=== PATIENT | male | born 1960 | race Caucasian/White ===

== ENCOUNTER 2021-02-19 13:19 | Outpatient (CLI) | payer BC, SELFPAY ==
--- NOTE | ~2021-02-19 | MR_ITS ---
EXAMINATION: MR abdomen wo con DATE: 02/19/2021 13:59 INDICATION: Other specified diseases of liver. TECHNIQUE: Magnetic resonance imaging (MRI) of the abdomen was performed without intravenous contrast . Sequences included coronal T2-weighted FS FSE, coronal and axial FS FIESTA, axial T2-weighted FSE, coronal LAVA-flex, axial STIR FSE, axial DWI, axial dual-echo T1-weighted FSPGR, and axial LAVA. COMPARISON: None. FINDINGS: There is diffuse hepatic steatosis. There are cysts in the liver measuring up to 12 mm. The gallbladd er, spleen, pancreas, and adrenal glands are normal. There are cysts in the kidneys measuring up to 6 mm in the right. There are no dilated loops of bowel. There are no pathologically enlarged lymph nod es. There is no free intraperitoneal fluid. IMPRESSION: 1. Small cysts in the liver. 2. Diffuse hepatic steatosis. Reviewed, dictated and finalized at location A. [employer]
== END 2021-02-19 13:20 | disposition home or self-care (01) ==
LOC: ANHIMG 13:25
PROVIDERS: PCP Internal Medicine; Visit Provider Internal Medicine
DX: K76.89 Other specified diseases of liver (principal); K76.0 Fatty (change of) liver, not elsewhere classified
CPT/HCPCS: 74181

== ENCOUNTER 2024-08-31 07:25 | Outpatient (CLI) | payer BC, SELFPAY ==
--- NOTE | ~2024-08-31 | NM_ITS ---
EXAMINATION: NM pilar stress w perfusion DATE: 08/31/2024 10:03 INDICATION: Ventricular tachycardia TECHNIQUE: Rest images were obtained following intravenous administration of 11.7 mCi Tc99m tetrofosm in (Myoview). The patient was infused intravenously with Lexiscan (Regadenoson). Then, 34.6 mCi Tc99m tetrofosmin (Myoview) was administered intravenously, and stress images were obtained. Data was sam nstructed into short axis and horizontal and vertical long axis SPECT images. Gated SPECT images were also obtained. COMPARISON: None. FINDINGS: There is no definite reversible or fixed perfusion abnormality to suggest ischemia or infar ction. There is normal left ventricular chamber size, wall motion and ejection fraction. Left ventr icular ejection fraction measures 63%. IMPRESSION: 1. Normal myocardial perfusion at rest and during stress. 2. Left ventricular ejection fraction measuring 63%. Reviewed, dictated and finalized at location A.
--- NOTE | 2024-08-31 08:15 | ECHO_ITS ---
Patient Info Name: Chad Villagomez Age: 63 years : 1960 Gender: Male Ht: 72 in Wt: 280 lbs BSA: 2.59 m2 HR: 60 bpm BP: 166 / 95 mmHg Technical Quality: Good Exam Date: 08/31/2024 10:05 AM Patient Status: O Admit Date: 08/31/2024 Exam Type: CA echo doppler color flow Complete two-dimensional, color flow and Doppler transthoracic echocardiogram is performed. Staff Referring Physician: Dhaval Lang DO Brushing Operator: Alexsandra Jones Attending Provider: Dhaval Lang DO Summary 1. Complete two-dimensional, color flow and Doppler transthoracic echocardiogram is performed. 2. Left ventricular chamber dimension is normal. 3. Left ventricular systolic function is normal, estimated at 60-65. 4. The left ventricular diastolic function is normal. 5. E/e' 8 is minimally elevated. Left Ventricle E/e' 8 is minimally elevated. Left ventricular chamber dimension is normal. Left ventricular systolic function is normal, estimated at 60-65. The left ventricular diastolic function is normal. Right Ventricle Right ventricular chamber dimension is normal. Right ventricular systolic function is normal. Left Atria Left atrial chamber dimension is normal. Right Atria Right atrial chamber dimension is normal. Aortic Valve The aortic valve is trileaflet. There is no aortic valve stenosis. There is no aortic valve regurgitation. Pulmonic Valve There is no pulmonic regurgitation. Mitral Valve There is no mitral valve stenosis. There is mild mitral valve regurgitation. Tricuspid Valve There is no tricuspid valve regurgitation. Pericardium/Pleural There is no pericardial effusion. Inferior Vena Cava Normal inferior vena cava with >50% collapse upon inspiration consistent with normal right atrial pressure, 5 mmHg. Aorta The aortic root size at the sinus of Valsalva is normal. Left Ventricular Outflow Tract Name Value Normal LVOT 2D LVOT Diameter 2.0 cm Pulmonic Valve Name Value Normal RVOT Doppler RVOT Peak Velocity 70 cm/s RVOT Peak Gradient 2 mmHg PV Doppler PV Peak Velocity 119 cm/s PV Peak Gradient 6 mmHg Mitral Valve Name Value Normal MV Diastolic Function MV E Peak Velocity 92 cm/s MV A Peak Velocity 86 cm/s MV E/A 1.1 MV Decel Time (PW) 219 ms MV Annular TDI MV E/e' (Septal) 8.8 MV E/e' (Lateral) 8.3 MV E/e' (Average) 8.5 Tricuspid Valve Name Value Normal Estimated PAP/RSVP RA Pressure 5 mmHg <=5 Aortic Valve Name Value Normal AV Doppler AV Peak Velocity 127 cm/s AV Peak Gradient 6 mmHg AV Regurgitation 2D LVOT Area 3.1 cm2 Ventricles Name Value Normal LV Dimensions 2D/MM IVS Diastolic Thickness (2D) 1.1 cm 0.6-1.0 LVID Diastole (2D) 4.4 cm 4.2-5.8 LVIW Diastolic Thickness (2D) 1.0 cm 0.6-1.0 LVID Systole (2D) 2.8 cm 2.5-4.0 LVOT Diameter 2.0 cm LV Mass (2D Cubed) 158.69 g 88.00-224.00 LV Mass Index (2D Cubed) 61 g/m2 49-115 Relative Wall Thickness (2D) 0.45 <=0.42 LV Fractional Shortening/Ejection Fraction 2D/MM LV Fractional Shortening (2D) 36 % 25-43 LV EF (2D Teichholz) 65 % LV Diastolic Volume (4C MOD) 107 ml LV EF (4C MOD) 55 % LV Diastolic Volume (2C MOD) 118 ml LV EF (2C MOD) 57 % LV Diastolic Volume (BP MOD) 124 ml 62-150 LV Diastolic Volume Index (BP MOD) 48 ml/m2 34-74 LV Systolic Volume (BP MOD) 54 ml 21-61 LV Systolic Volume Index (BP MOD) 21 ml/m2 11-31 LV EF (BP MOD) 57 % 52-72 LV Diastolic Length (4C) 8.0 cm LV Systolic Length (4C) 7.2 cm LV Stroke Volume (4C MOD) 59 ml Atria Name Value Normal LA Dimensions LA Volume (4C A-L) 26 ml LA Volume (BP A-L) 33 ml RA Dimensions RA Systolic Major [place] Length (4C) 6.1 cm 2.1-2.7 RA Area (4C) 18.7 cm2 <=18.0 Report Signatures
--- NOTE | 2024-08-31 08:15 | EST_ITS ---
Patient Info Name: Chad Villagomez Age: 63 years : 1960 Gender: Male Ht: 72 in Wt: 280 lbs BSA: 2.59 m2 HR: 65 bpm BP: 149 / 81 mmHg Exam Date: 08/31/2024 8:15 AM Patient Status: O Admit Date: 08/31/2024 Exam Type: CA stress pilar w NM A regadenoson stress test was performed. Staff Referring Physician: Dhaval Lang DO Attending Provider: Dhaval Lang DO Exercise Technologist: Lily Welch Exercise Physician: Dhaval Lang DO Summary 1. 1. Negative lexiscan stress test for ischemic ST changes by ECG criteria. 2. 2. Baseline hypertension. 3. 3. Nuclear scan to follow and will be reported separately. Please correlate with it. 4. 4. Patient informed of the above results. Protocol: Lexiscan Stress ECG Details Stage: REST Duration (min): 2 min : 3 sec HR (bpm): 66 SBP (mmHg): 149 DBP (mmHg): 81 Stage: REST Duration (min): 8 min : 35 sec HR (bpm): 67 SBP (mmHg): 149 DBP (mmHg): 81 Stage: STAGE 1 Duration (min): 1 min : 0 sec HR (bpm): 88 SBP (mmHg): 150 DBP (mmHg): 71 Stage: RECOVERY Duration (min): 1 min : 0 sec HR (bpm): 82 SBP (mmHg): 150 DBP (mmHg): 71 Stage: RECOVERY Duration (min): 2 min : 0 sec HR (bpm): 78 SBP (mmHg): 150 DBP (mmHg): 71 Stage: RECOVERY Duration (min): 3 min : 0 sec HR (bpm): 76 SBP (mmHg): 146 DBP (mmHg): 74 Stage: RECOVERY Duration (min): 3 min : 6 sec HR (bpm): 75 SBP (mmHg): 146 DBP (mmHg): 74 Rest HR: 67 bpm Peak HR: 88 bpm Rest Sys BP: 149 mmHg Peak Sys BP: 150 mmHg Max Pred HR: 157 bpm % Max Pred HR: 56 % Target HR: 133 bpm Max RPP: 13,200 bpm*mmHg Termination Reason: Completed protocol Cardiac Symptoms: Shortness of breath Total Time: 1 min : 0 sec Rest Box BP: 81 mmHg Peak Box BP: 71 mmHg Total Dose: 0.4 mg Resting ECG Sinus rhythm. Stress ECG No ST changes. Arrhythmias None. Report Signatures
== END 2024-08-31 07:26 | disposition home or self-care (01) ==
PROVIDERS: PCP Nurse Practitioner Family; Visit Provider Internal Medicine Cardiovascular Disease
DX: I47.20 Ventricular tachycardia, unspecified (principal)
CPT/HCPCS: 78452; 93017; 93306; A9502; J2785